=== PATIENT | female | born 1955 | race Caucasian/White ===

== ENCOUNTER 2018-06-24 08:02 | Inpatient (IN) ==
[2018-06-24] MEDS ORDERED: Sod Chloride 0.9% Inj 1,000 ML IV.SIG ONE (08:55)
[2018-06-24] MEDS ORDERED: diazePAM 5 MG Tablet PO ONE (08:55)
[2018-06-24 09:04] LABS: Baso % (Auto) 0.1 % (0.0-2.0); Eos % (Auto) 0.4 % (0.0-4.0); Hematocrit 40.3 % (35.0-46.0); Hemoglobin 13.4 gm/dL (11.6-15.3); Lymph # (Auto) 1.1 th/mm3 (1.0-4.8); Lymph % (Auto) 14.7 % (9.0-44.0); Mean Corpuscular HGB Conc 33.2 % (32.0-36.0); Mean Corpuscular Hemoglobin 27.2 pg (27.0-34.0); Mean Corpuscular Volume 82.1 fL (80.0-100.0); Mean Platelet Volume 8.1 fL (7.0-11.0); Mono # (Auto) 0.6 th/mm3 (0.0-0.9); Mono % (Auto) 8.2 % (0.0-8.0); Neut # (Auto) 5.6 th/mm3 (1.8-7.7); Neut % (Auto) 76.6 % (16.0-70.0); Platelet Count 244 th/mm3 (150-450); Red Blood Count 4.91 mil/mm3 (4.00-5.30); Red Cell Distribution Width 14.5 % (11.6-17.2); White Blood Count 7.3 th/mm3 (4.0-11.0)
--- NOTE | 2018-06-24 09:04 | ED ---
HPI General Chief Complaint: Dizziness Stated Complaint: Dizzy/nausea this am Time Seen by Provider: 06/24/18 08:15 Source: patient Mode of arrival: ambulatory Limitations: no limitations History of Present Illness HPI Narrative: The patient is a 63-year-old female who presents to emergency department for vertigo. The patient has a history of vertigo, awakened this morning with symptoms. The patient's symptoms are worse with positional changes, head movement, and are associated with nausea and vomiting. The patient took a meclizine this morning and then went to work. However, the patient had an episode of vomiting and thinks she may have vomited the meclizine. The patient then had an overwhelming sense of generalized weakness that was associated with a pronounced beating of the heart. The patient states she felt like her heart was beating at a regular rate, however, was beating loudly and slightly irregular. Therefore, the patient presents emergency department. The patient states that the atypical her sensation has resolved, however, she continues to have generalized weakness associated with nausea. The patient's symptoms are moderate. There are no current alleviating factors. The patient denies any headache or focal deficits. MD complaint: dizziness Onset (ago): hour(s) Timing: awoke with symptoms Description: "room spinning" History of similar episodes: Yes History of trauma: No Severity: moderate Exacerbating factors: movement and position Associated symptoms: weakness, nausea and vomiting Related Data Home Medications Medication Instructions Recorded Confirmed multivitamin 1 tab PO DAILY 06/24/18 06/24/18 Allergies Allergy/AdvReac Type Severity Reaction Status Date / Time No Known Allergies Allergy none Uncoded 06/24/18 08:40 Review of Systems ROS: all other systems reviewed are negative [facility] Medical History Medical History Glaucoma (Acute) Mitral valve prolapse (Acute) Skin cancer (Acute) Vertigo (Acute) Surgical History Surgical History History of breast implant (Acute) Social History Social History Substance History: No History of Abuse Smoking Status: Never smoker How Often Do You Have a Drink Containing Alcohol: Never Recent Travel in [facility] within the Last 8 Weeks: No Recent Out of Country Travel within the Last 8 Weeks: No Immunization History Tetanus Immunization: >5 Years Hx Influenza Vaccine This Season: No Exam Narrative Exam Narrative: GENERAL: Awake, alert, pleasant 63-year-old female who appears her stated age and is in no acute respiratory distress. SKIN: Focused skin assessment warm/dry. HEAD: Atraumatic. Normocephalic. EYES: Pupils equal and round. 3 mm bilateral and reactive. EOMs are intact. No obvious nystagmus. The patient is wearing glasses. ENT: No nasal bleeding or discharge. Mucous membranes pink and moist. NECK: Trachea midline. No JVD. CARDIOVASCULAR: Regular rate and rhythm. No murmur appreciated. RESPIRATORY: No accessory muscle use. Clear to auscultation. Breath sounds equal bilaterally. GASTROINTESTINAL: Abdomen soft, non-tender, nondistended. MUSCULOSKELETAL: No obvious deformities. No clubbing. No cyanosis. No edema. NEUROLOGICAL: Awake and alert. No obvious cranial nerve deficits. Motor grossly within normal limits. Normal speech. Nonfocal. Oriented 4. Follows commands without difficulty. PSYCHIATRIC: Appropriate mood and affect; insight and judgment normal. Course Initial Documented Vital Signs Temperature 97.8 F 06/24/18 08:27 Pulse Rate 66 06/24/18 08:27 Respiratory Rate 20 06/24/18 08:27 Blood Pressure 179/81 H 06/24/18 08:27 Pulse Oximetry 98 06/24/18 08:27 Last Documented Vital Signs Temperature 97.8 F 06/24/18 08:27 Pulse Rate 58 L 06/24/18 10:04 Respiratory Rate 16 06/24/18 10:04 Blood Pressure 153/70 H 06/24/18 10:04 Pulse Oximetry 97 06/24/18 10:04 Medical Decision Making [facility] Narrative Medical decision making narrative: IV was established, labs are drawn and sent, and the patient was placed on cardiac telemetry monitoring and continuous pulse oximetry monitoring. EKG was ordered and interpreted. The patient was administered Valium and IV fluids. Electrolytes were sent to lab. The patient appear to be in a normal sinus rhythm when I was examining the patient, therefore, repeat EKG was performed. Repeat EKG does reveal P waves with a sinus rhythm, however, there are several atrial beats that appear to have no P- wave or an inverted P-wave, most likely some type of atrial arrhythmia. The patient's troponin was positive at 0.10. CT the brain is negative for intracranial hemorrhage. Therefore, the patient was administered aspirin 162 mg orally. The patient does have a dysrhythmia with elevated troponin, may benefit from telemetry monitoring, echocardiogram, and serial troponins. I discussed the palliation with Dr. Canales who agrees with 23 hour observation. Medical Screen Exam Complete: Yes Emergency Medical Condition: Yes Differential Diagnosis Differential Diagnosis: Differential diagnosis includes vertigo, dizziness, arrhythmia, hyponatremia, hypokalemia, intracranial hemorrhage, labyrinthitis, Mnire's disease. Lab Data Result diagrams: 06/24/18 08:40 06/24/18 08:40 Lab Results 06/24/18 06/24/18 06/24/18 Range/Units 08:40 08:40 09:50 CBC w Diff Auto diff final WBC 7.3 (4.0-11.0) th/mm3 RBC 4.91 (4.00-5.30) mil/mm3 Hgb 13.4 (11.6-15.3) gm/dL Hct 40.3 (35.0-46.0) % MCV 82.1 (80.0-100.0) fL MCH 27.2 (27.0-34.0) pg MCHC 33.2 (32.0-36.0) % RDW 14.5 (11.6-17.2) % Plt Count 244 (150-450) th/mm3 MPV 8.1 (7.0-11.0) fL Neut % (Auto) 76.6 H (16.0-70.0) % Lymph % (Auto) 14.7 (9.0-44.0) % [place] % (Auto) 8.2 H (0.0-8.0) % Eos % (Auto) 0.4 (0.0-4.0) % Baso % (Auto) 0.1 (0.0-2.0) % Neut # (Auto) 5.6 (1.8-7.7) th/mm3 Lymph # (Auto) 1.1 (1.0-4.8) th/mm3 [place] # (Auto) 0.6 (0.0-0.9) th/mm3 Eos # (Auto) 0.0 (0.0-0.4) th/mm3 Baso # (Auto) 0.0 (0.0-0.2) th/mm3 WBC Differential . Differential Comment . Sodium 140 (136-145) meq/L Potassium 3.8 (3.5-5.1) meq/L Chloride 107 (98-107) meq/L Carbon Dioxide 25.9 (21.0-32.0) meq/L Anion Gap 7 (5-15) meq/L BUN 17 (7-18) mg/dL Creatinine 0.63 (0.50-1.00) mg/dL Estimated GFR Greater than 89 (>89) mL/min Random Glucose 107 H (74-106) mg/dL Calcium 8.7 (8.5-10.1) mg/dL Total Bilirubin 0.1 L (0.2-1.0) mg/dL AST 23 (15-37) U/L ALT 27 (10-53) U/L Alkaline Phosphatase 60 (45-117) U/L Troponin I 0.10 H (0.02-0.05) ng/mL Total Protein 6.7 (6.4-8.2) g/dL Albumin 3.6 (3.4-5.0) g/dL Ur Collection Type Clean catch Urine Color Yellow (Yellw/Straw) Urine Clarity Cloudy H (Clear) Urine pH 8.5 (5.0-8.5) Ur Specific [place] 1.015 (1.002-1.035) Urine Protein Negative (Neg-Trace) mg/dL Urine Glucose (UA) Negative (Negative) mg/dL Urine Ketones Negative (Negative) mg/dL Urine Occult Blood Negative (Negative) Urine Nitrate Negative (Negative) Urine Bilirubin Negative (Negative) Urine Urobilinogen 0.2 (Less than 2) mg/dL Ur Leukocyte Esterase Negative (Negative) Ur Squamous Epith Cells 0-5 (0-5) /hpf Amorphous Sediment Many H (None) /hpf Micro UA Comment Culture not ind Ur Microscopic Review Microscopic reviewed Urine Culture Comments Culture not ind Urine Collection Time 950 hours Imaging Data Radiologist's impression: Head CT 06/24/18 09:39 CONCLUSION: 1. Negative for acute process . ECG Data EKG Prior to Arrival: No Attestation: I personally reviewed and interpreted this ECG as follows: Interpretation: EKG reveals supraventricular rhythm with inverted P waves noted in lead II and III, supraventricular premature complexes in a bigeminal pattern. Q-wave noted in lead V1 and V2. Discharge Plan Discharge Disposition Patient Disposition: 30 Still Patient Discharge Condition Condition: Stable Discharge Details Diagnosis: Dysrhythmia, Elevated troponin, Vertigo, Nausea Physicians Team ED Provider: Chaitanya Loving Primary Care Provider: Yosi Dobson Rxs /Orders / Referrals /Forms Prescriptions: No Action multivitamin Tablet 1 tab PO DAILY RF: 0 Discharge Interventions Interventions: Vital Signs Last Done: 06/24/18 10:04 Status ED Status: Pending Admission
[2018-06-24 09:12] LABS: Chloride 107 meq/L (98-107); Potassium 3.8 meq/L (3.5-5.1); Sodium 140 meq/L (136-145)
[2018-06-24 09:15] LABS: Albumin 3.6 g/dL (3.4-5.0); Anion Gap 7 meq/L (5-15); Blood Urea Nitrogen 17 mg/dL (7-18); Calcium 8.7 mg/dL (8.5-10.1); Carbon Dioxide 25.9 meq/L (21.0-32.0); Glucose,Random 107 mg/dL (74-106)
[2018-06-24 09:18] LABS: Alanine Aminotransferase 27 U/L (10-53); Aspartate Aminotransferase 23 U/L (15-37); Glomerular Filtration Rate Greater Than 89 mL/min (>89)
[2018-06-24 09:20] LABS: Total Protein 6.7 g/dL (6.4-8.2)
[2018-06-24 09:21] LABS: Alkaline Phosphatase 60 U/L (45-117)
[2018-06-24 10:01] LABS: Bilirubin,Urine Negative (Negative); Clarity,Urine Cloudy (Clear); Color,Urine Yellow (Yellw/Straw); Glucose,Urine (UA) Negative (Negative); Leukocyte Esterase,Urine Negative (Negative); Nitrite,Urine Negative (Negative); PH,Urine 8.5 (5.0-8.5); Specific Gravity,Urine 1.015 (1.002-1.035); Urobilinogen,Urine 0.2 mg/dL (Less than 2)
[2018-06-24 10:14] LABS: Collection Time,Urine 950 hours
[2018-06-24 10:15] LABS: Amorphous Sediment,Urine Many /hpf; Squamous Epithelial Cell,Urine 0-5 /hpf (0-5)
--- NOTE | 2018-06-24 10:18 | CT ---
EXAM DATE: 06/24/2018 10:05 AM EDT AGE/SEX: 63 years / Female INDICATIONS: Dizziness. CLINICAL DATA: This is the patient's initial encounter. Patient reports that signs and symptoms have been present for 1 day and indicates a pain score of 0/10. MEDICAL/SURGICAL HISTORY: . Mitral valve prolapse. Skin cancer. None. RADIATION DOSE: 48.50 CTDI (mGy) COMPARISON: No prior exams available for comparison. TECHNIQUE: CT of the head without contrast. Using automated exposure control and adjustment of the mA and/or kV according to patient size, radiation dose was kept as low as reasonably achievable to ob tain optimal diagnostic quality images. DICOM format image data is available electronically for revi ew and comparison. FINDINGS: Cerebrum: The ventricles are normal for age. No evidence of midline shift, mass lesion, hemorrhage or acute infarction. No extraaxial fluid collections are seen. Posterior Fossa: The cerebellum and brainstem are intact. The 4th ventricle is midline. The cerebe llopontine angle is unremarkable. Extracranial: The visualized portion of the orbits is intact. Skull: The calvaria is intact. No evidence of skull fracture. CONCLUSION: 1. Negative for acute process . Electronically signed by: Ford Grewal MD 06/24/2018 10:16 AM EDT
[2018-06-24] MEDS: Sod Chloride 0.9% Inj 1,000 ML IV.CONT SCH ×2 (10:55→21:08)
[2018-06-24] MEDS ORDERED: Enoxaparin Inj 30 MG/0.3 ML Syringe SQ SCH (11:00)
--- NOTE | 2018-06-24 12:14 | P.HPIM ---
History of Present Illness Primary Care Physician: Yosi Dobson MD Chief Complaint: Dizziness, palpitations History of Present Illness: The patient is a 63-year-old female with a past medical history of vertigo and mitral valve prolapse who is presenting to the hospital with palpitations and dizziness. The patient states that she has had vertigo for the past 10 years. She falls down a lot. She did go to vestibular rehab in the past and improved. She states over the past 6 months her vertigo has changed. She says it is more in her head than it used to be. She still struggles with dizziness. She says in the past she had an MRI which showed a brain lesion which turned out to be benign. The patient states that today she was going to work when she felt palpitations. She felt like her heart was pounding out of her chest. She said that it was pounding very slowly. Her family checked her pulse and it was in the 30s on a couple of occasions. The patient also experienced nausea and vomiting as well as profound weakness in the upper extremities. She denied any shortness of breath or chest pain. She currently says the nausea is gone. She denies ever having palpitations before. 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 ear Mitral valve prolapse Skin cancer Vertigo - Surgical History Surgical History: Surgical History (Last Updated 06/24/18 @ 12:09 by Dario Canales DO) History of breast implant History of tonsillectomy - Family History Family History: Family History (Last Updated 06/24/18 @ 12:10 by Dario Canales DO) Other CVA (cerebral vascular accident) Glioblastoma multiforme of brain - Social History I have reviewed the patient's Social History: Yes - Tobacco History Tobacco Use In Past 30 Days: No Smoking Status: Never smoker - Alcohol History How Often Do You Have a Drink Containing Alcohol: Never - Substance Use History Substance History: No History of Abuse - Travel History Recent Travel in the [place] Within the Last 8 Weeks: No Recent Travel Out of the Country Within the Last 8 Weeks: No - Immunization History Tetanus Immunization: >5 Years Hx Influenza Vaccine This Season: No Medications and Allergies Active Medications: Active Medications Acetaminophen (Tylenol) 650 mg PO Q4H PRN PRN Reason: Temp > 100.4 Enoxaparin Sodium (Lovenox Inj) 30 mg SQ Q24H [facility] Last Admin: 06/24/18 10:55 Dose: 30 mg Sodium Chloride (Ns Inj) 1,000 mls @ 100 mls/hr IV.CONT .Q10H [facility] Last Admin: 06/24/18 10:55 Dose: 100 mls/hr Multivitamins (Theragran) 1 tab PO DAILY [facility] Non-Formulary Medication (Timolol [Timolol]) 1 drp EACH EYE BID [facility] Ondansetron HCl (Zofran Inj) 4 mg IV.PUSH Q6H PRN PRN Reason: NAUSEA OR VOMITING Sodium Chloride (Ns Flush) 2 ml IV.FLUSH PRN PRN PRN Reason: FLUSH AFTER USING IV ACCESS Allergies Allergy/AdvReac Type Severity Reaction Status Date / Time No Known Allergies Allergy none Uncoded 06/24/18 08:40 Home Medications Medication Instructions Recorded Confirmed Type multivitamin 1 tab PO DAILY 06/24/18 06/24/18 History timolol 0 drp OPHTHALMIC (EYE) BID 06/24/18 06/24/18 History Exam Vital signs: Vital Signs 06/24/18 08:27 06/24/18 08:30 06/24/18 09:02 Temperature 97.8 F Pulse Rate 66 57 L 61 Respiratory Rate 20 18 Blood Pressure 179/81 H 170/70 H Pulse Oximetry 98 97 06/24/18 09:04 06/24/18 10:04 06/24/18 11:55 Temperature Pulse Rate 62 58 L 67 Respiratory Rate 16 18 Blood Pressure 153/70 H 140/72 Pulse Oximetry 97 99 Intake & Output 06/23/18 06/24/18 06/24/18 18:59 06:59 18:59 Intake Total 1000 / 1000 Balance 1000 / 1000 Weight 56.5 kg Intake: IV 1000 / 1000 NS Inj 1,000 ML @ Wide Open IV. 1000 / 1000 SIG BOLUS ONE Rx#:[id number] Narrative: GENERAL: No distress. SKIN: Focused skin assessment warm/dry. HEAD: Atraumatic. Normocephalic. EYES: Pupils equal and round. 3 mm bilateral and reactive. EOMs are intact. No obvious nystagmus. ENT: No nasal bleeding or discharge. Mucous membranes pink and moist. NECK: Trachea midline. No JVD. CARDIOVASCULAR: Regular rate and rhythm. No murmur appreciated. RESPIRATORY: No accessory muscle use. Clear to auscultation. Breath sounds equal bilaterally. GASTROINTESTINAL: Abdomen soft, non-tender, nondistended. MUSCULOSKELETAL: No obvious deformities. No clubbing. No cyanosis. No edema. NEUROLOGICAL: Awake and alert. No obvious cranial nerve deficits. Motor grossly within normal limits. Normal speech. Nonfocal. Oriented 4. Follows commands without difficulty. PSYCHIATRIC: Appropriate mood and affect; insight and judgment normal. Results - Labs CBC & Chem 7: 06/24/18 08:40 06/24/18 08:40 Labs: Short CBC 06/24/18 Range/Units 08:40 WBC 7.3 (4.0-11.0) th/mm3 Hgb 13.4 (11.6-15.3) gm/dL Hct 40.3 (35.0-46.0) % Plt Count 244 (150-450) th/mm3 BMP 06/24/18 08:40 Sodium 140 Potassium 3.8 Chloride 107 Carbon Dioxide 25.9 BUN 17 Creatinine 0.63 Calcium 8.7 Cardiac Enzymes 06/24/18 Range/Units 08:40 Troponin I 0.10 H (0.02-0.05) ng/mL Liver Function 06/24/18 Range/Units 08:40 Total Bilirubin 0.1 L (0.2-1.0) mg/dL AST 23 (15-37) U/L ALT 27 (10-53) U/L Alkaline Phosphatase 60 (45-117) U/L Albumin 3.6 (3.4-5.0) g/dL Urine 06/24/18 Range/Units 09:50 Urine Color Yellow (Yellw/Straw) Urine Clarity Cloudy H (Clear) Urine pH 8.5 (5.0-8.5) Ur Specific [place] 1.015 (1.002-1.035) Urine Protein Negative (Neg-Trace) mg/dL Urine Glucose (UA) Negative (Negative) mg/dL - Imaging Impressions Head CT 06/24/18 09:39 CONCLUSION: 1. Negative for acute process . Caprini VTE Risk Assessment Caprini VTE Risk Assessment: Moderate/High Risk (score >= 2) Caprini Risk Assessment Model: Point Value = 1 Point Value = 2 Point Value = 3 Point Value = 5 Age 41-60 Minor surgery BMI > 25 kg/m2 Swollen legs Varicose veins or History of unexplained or recurrent spontaneous Oral contraceptives or hormone replacement Sepsis (< 1 month) Serious lung disease, including pneumonia (< 1 month) Abnormal pulmonary function Acute myocardial infarction Congestive heart failure (< 1 month) History of inflammatory bowel disease Medical patient at bed rest Age 61-74 Arthroscopic surgery Major open surgery (> 45 min) Laparoscopic surgery (> 45 min) Malignancy Confined to bed (> 72 hours) Immobilizing plaster cast Central venous access Age >= 75 History of VTE Family history of VTE Factor V Leiden Prothrombin [id number] Lupus anticoagulant Anticardiolipin antibodies Elevated serum homocysteine Heparin-induced thrombocytopenia Other congenital or acquired thrombophilia Stroke (< 1 month) Elective arthroplasty Hip, pelvis, or leg fracture Acute spinal cord injury (< 1 month) Prophylaxis Regimen: Total Risk Factor Score Risk Level Prophylaxis Regimen 0-1 Low Early ambulation 2 Moderate Order ONE of the following: *Sequential Compression Device (SCD) *Heparin 5000 units SQ BID 3-4 Higher Order ONE of the following medications: *Heparin 5000 units SQ TID *Enoxaparin/Lovenox 40 mg SQ daily (WT < 150 kg, CrCl > 30 mL/min) *Enoxaparin/Lovenox 30 mg SQ daily (WT < 150 kg, CrCl > 10-29 mL/min) *Enoxaparin/Lovenox 30 mg SQ BID (WT < 150 kg, CrCl > 30 mL/min) AND/OR *Sequential Compression Device (SCD) 5 or more Highest Order ONE of the following medications: *Heparin 5000 units SQ TID (Preferred with Epidurals) *Enoxaparin/Lovenox 40 mg SQ daily (WT < 150 kg, CrCl > 30 mL/min) *Enoxaparin/Lovenox 30 mg SQ daily (WT < 150 kg, CrCl > 10-29 mL/min) *Enoxaparin/Lovenox 30 mg SQ BID (WT < 150 kg, CrCl > 30 mL/min) AND *Sequential Compression Device (SCD) Assessment and Plan - Plan Palpitations/ Elevated troponin The pt experienced slow palpitations, troponin level noted to be 0.1. She denied chest pain or shortness of breath. She has a history of mitral valve prolapse. -trend trops. -check an echo. -monitor on telemetry. -check a TSH. -consult Dr. Hernandez as needed (her manufacture specialist). Vertigo Chronic. The pt says about six months ago her vertigo changed and she has a different sensation now. She says she has a history of a benign brain mass. CT head unremarkable. -MRI brain requested. -patient declined PT. -fall precautions. HTN No reported history. -Vasotec as needed. PPx: Lovenox
--- NOTE | 2018-06-24 14:10 | ECG ---
Date Performed: 06/24/2018 Time Performed: 08:26:57 PTAGE: 63 years EKG: JUNCTIONAL RHYTHM WITH FREQUENT SUPRAVENTRICULAR PREMATURE COMPLEXES IN A BIGEMINAL PATTERN POSSIBLE RIGHT VENTRICULAR CONDUCTION DELAY SEPTAL MYOCARDIAL INFARCTION ABNORMAL ECG Clinical corre lation is recommended NO PREVIOUS TRACING DOCTOR: Stefano Bullard Interpretating Date/Time 06/24/2018 14:08:22
--- NOTE | 2018-06-24 14:10 | ECG ---
Date Performed: 06/24/2018 Time Performed: 09:18:10 PTAGE: 63 years EKG: ATRIAL FIBRILLATION WITH SLOW VENTRICULAR RESPONSE INCOMPLETE RIGHT BUNDLE BRANCH BLOCK SEP ELY MYOCARDIAL INFARCTION ABNORMAL ECG Compared to PREVIOUS TRACING ventricular ectopy has diminished, otherwise largely unchanged PREVIOUS TRACIN06/24/2018 08.26 DOCTOR: Stefano Bullard Interpretating Date/Time 06/24/2018 14:08:49
[2018-06-24] MEDS: Lisinopril 10 MG Tablet PO SCH (14:51)
[2018-06-24] MEDS: Heparin Drip 25,000 UNIT/250 ML BAG IV.CONT PRN ×2 (14:52→16:01)
[2018-06-24 16:00] LABS: Activated Partial Thrombo Time 27.4 sec (24.3-30.1); Prothrombin Time 10.6 sec (9.8-11.6)
[2018-06-24] MEDS ORDERED: amLODIPine 5 MG Tablet PO SCH (17:00)
[2018-06-24 17:53] LABS: Chol/HDL Ratio 3.19 Ratio; HDL Cholesterol 56.9 mg/dL (40.0-60.0)
--- NOTE | 2018-06-24 18:17 | ECHRPT ---
Indication: CARDIOMYOPATHY CONCLUSIONS The left ventricular systolic function is normal with an estimated ejection fraction in the range of 60-65%. There is mid to apical septal akinesis. There is trace-mild tricuspid valve regurgitation. The estimated pulmonary arterial pressure is 44.1 mmHg. Estimated RAP 8mmHg. BP: / HR: Rhythm: MEASUREMENTS (Male / Female) Normal Values Technical Quality: 2D ECHO LV Diastolic Diameter PLAX 4.1 cm 4.2 - 5.9 / 3.9 - 5.3 cm LV Systolic Diameter PLAX 2.9 cm IVS Diastolic Thickness 0.9 cm 0.6 - 1.0 / 0.6 - 0.9 cm LVPW Diastolic Thickness 0.9 cm 0.6 - 1.0 / 0.6 - 0.9 cm LV Relative Wall Thickness 0.4 RV Internal Dim ED PLAX 2.5 cm LVOT Diameter 1.7 cm LA Systolic Diameter LX 3.0 cm 3.0 - 4.0 / 2.7 - 3.8 cm LV Ejection Fraction MOD 4C 64.8 % LV Ejection Fraction 4C AL 65.4 % M-MODE Aortic Root Diameter MM 2.0 cm LA Systolic Diameter MM 2.8 cm LA Ao Ratio MM 1.4 AV Cusp Separation MM 1.6 cm DOPPLER AV Peak Velocity 126.0 cm/s AV Peak Gradient 6.4 mmHg LVOT Peak Velocity 129.0 cm/s LVOT Peak Gradient 6.7 mmHg AV Area Cont Eq pk 2.3 cm MV Area PHT 3.1 cm Mitral E Point Velocity 69.6 cm/s Mitral A Point Velocity 64.7 cm/s Mitral E to A Ratio 1.1 LV E' Lateral Velocity 9.1 cm/s Mitral E to LV E' Lateral Ratio 7.7 LV E' Septal Velocity 7.2 cm/s Mitral E to LV E' Septal Ratio 9.7 TR Peak Velocity 292.0 cm/s TR Peak Gradient 34.1 mmHg Right Atrial Pressure 10.0 mmHg Pulmonary Artery Systolic Pressu 44.1 mmHg Right Ventricular Systolic Press 44.1 mmHg PV Peak Velocity 86.9 cm/s PV Peak Gradient 3.0 mmHg FINDINGS LEFT VENTRICLE The left ventricular systolic function is normal with an estimated ejection fraction in the range of 60-65%. Normal left ventricular size. Wall thickness is normal. There is mid to apical septal akinesis. RIGHT VENTRICLE Normal right ventricular size and systolic function. LEFT ATRIUM The left atrial size is normal. RIGHT ATRIUM The right atrial size is normal. ATRIAL SEPTUM Normal atrial septal thickness without atrial level shunting by limited color doppler interrogation. AORTA The aortic root and proximal ascending aorta are normal in size on limited imaging. MITRAL VALVE Structurally normal mitral valve. No mitral valve stenosis or regurgitation. AORTIC VALVE Trileaflet aortic valve. No aortic valve stenosis or regurgitation. TRICUSPID VALVE Structurally normal tricuspid valve. There is trace-mild tricuspid valve regurgitation. The estimated pulmonary arterial pressure is 44.1 mmHg. PULMONARY VALVE No pulmonary valve regurgitation or stenosis. VESSELS The inferior vena cava is dilated. There is less than 50% respiratory change in dimension of the inferior vena cava (abnormal). PERICARDIUM No pericardial effusion. Roman Workman (Electronically Signed) Final Date:24 June 2018 18:15
[2018-06-24] MEDS: Timolol 0.25% Drops 5 ML Bottle EACH EYE SCH (21:07)
[2018-06-25 05:05] LABS: Baso % (Auto) 0.4 % (0.0-2.0); Eos % (Auto) 0.8 % (0.0-4.0); Hematocrit 36.9 % (35.0-46.0); Lymph # (Auto) 1.2 th/mm3 (1.0-4.8); Lymph % (Auto) 34.3 % (9.0-44.0); Mean Corpuscular HGB Conc 32.4 % (32.0-36.0); Mean Corpuscular Hemoglobin 27.2 pg (27.0-34.0); Mean Platelet Volume 7.7 fL (7.0-11.0); Mono # (Auto) 0.4 th/mm3 (0.0-0.9); Mono % (Auto) 10.5 % (0.0-8.0); Neut # (Auto) 1.9 th/mm3 (1.8-7.7); Platelet Count 175 th/mm3 (150-450); Red Cell Distribution Width 14.8 % (11.6-17.2); White Blood Count 3.6 th/mm3 (4.0-11.0)
[2018-06-25] MEDS: Acetaminophen 325 MG Tablet PO PRN ×2 (05:19→09:55)
[2018-06-25 05:41] LABS: Alanine Aminotransferase 27 U/L (10-53); Albumin 3.2 g/dL (3.4-5.0); Anion Gap 8 meq/L (5-15); Aspartate Aminotransferase 26 U/L (15-37); Blood Urea Nitrogen 16 mg/dL (7-18); Calcium 8.4 mg/dL (8.5-10.1); Chloride 111 meq/L (98-107); Glomerular Filtration Rate Greater Than 89 mL/min (>89); Glucose,Random 93 mg/dL (74-106); Potassium 3.7 meq/L (3.5-5.1); Sodium 147 meq/L (136-145)
[2018-06-25 05:43] LABS: Alkaline Phosphatase 55 U/L (45-117); Total Protein 5.9 g/dL (6.4-8.2)
[2018-06-25] MEDS: Sod Chloride 0.9% Inj 1,000 ML IV.CONT SCH ×2 (06:25→18:42)
[2018-06-25] MEDS ORDERED: Iohexol 350 MG/ML 50 ML Vial (for Cath Lab) IVCONTRAST ONE (07:20)
--- NOTE | 2018-06-25 08:10 | P.CONCA ---
History of Present Illness Primary Care Provider: Yosi Dobson MD Family Provider: Yosi Dobson MD Chief Complaint: Dizziness, palpitations History of Present Illness: 63-year-old female with past medical history of vertigo who presented for weakness, chest pounding, nausea. Patient states she was having dizziness and nausea like with her previous vertigo episodes when she went to work yesterday. She states while at work she felt weak and had her drive her home. On the way home she was having sensation of pounding heart. She checked her blood pressure when she went home and her home blood pressure machine read her pulse as 30 so she decided to go to the ED for evaluation. She states she was given Valium and Zofran in the ED which resolved her nausea and dizziness. Her initial EKG shows septal Q waves which have persisted and bigeminal premature junctional contractions which have resolved. Initial troponin of 0.10 trended up to 3.00. She is currently on Nitropaste and heparin drip. She complains of headache today, no chest pain. No family history of CT or tobacco use history. She denies any prior history of HTN, HLD, DM. 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 ear Mitral valve prolapse Skin cancer Vertigo - Surgical History Surgical History: Surgical History (Last Updated 06/24/18 @ 12:09 by Dario Canales DO) History of breast implant History of tonsillectomy - Family History Family History: Family History (Last Updated 06/24/18 @ 12:10 by Dario Canales DO) Other CVA (cerebral vascular accident) Glioblastoma multiforme of brain - Tobacco History Tobacco Use In Past 30 Days: No Smoking Status: Never smoker - Alcohol History How Often Do You Have a Drink Containing Alcohol: Never - Substance Use History Substance History: No History of Abuse - Travel History Recent Travel in the [place] Within the Last 8 Weeks: No Recent Travel Out of the Country Within the Last 8 Weeks: No - Immunization History Tetanus Immunization: >5 Years Hx Influenza Vaccine This Season: No Medications and Allergies Allergies Allergy/AdvReac Type Severity Reaction Status Date / Time No Known Allergies Allergy none Uncoded 06/24/18 08:40 Home Medications Medication Instructions Recorded Confirmed Type multivitamin 1 tab PO DAILY 06/24/18 06/24/18 History timolol 0 drp OPHTHALMIC (EYE) BID 06/24/18 06/24/18 History Active Medications: Active Medications Acetaminophen (Tylenol) 650 mg PO Q4H PRN PRN Reason: Temp > 100.4 Last Admin: 06/25/18 05:19 Dose: 650 mg Amlodipine Besylate (Norvasc) 5 mg PO DAILY [facility] Last Admin: 06/24/18 16:36 Dose: 5 mg Aspirin (Ecotrin) 81 mg PO DAILY [facility] Atorvastatin Calcium (Lipitor) 40 mg PO HS [facility] Last Admin: 06/24/18 20:31 Dose: 40 mg Sodium Chloride (Ns Inj) 1,000 mls @ 100 mls/hr IV.CONT .Q10H [facility] Last Admin: 06/25/18 06:25 Dose: 100 mls/hr Heparin Sodium/Dextrose (Heparin/D5w 25,000 U/250 Ml) 25,000 unit in 250 mls @ 0 mls/hr IV.CONT TITRATE PRN; Protocol PRN Reason: Per Protocol Last Admin: 06/24/18 16:01 Dose: 700 units/hr, 7 mls/hr Lisinopril (Prinivil) 10 mg PO DAILY [facility] Last Admin: 06/24/18 14:51 Dose: 10 mg Multivitamins (Theragran) 1 tab PO DAILY [facility] Nitroglycerin (Nitro-Bid 2% Oint) 1 inch TOPICAL Q6HR [facility] Last Admin: 06/25/18 05:13 Dose: 1 inch Ondansetron HCl (Zofran Inj) 4 mg IV.PUSH Q6H PRN PRN Reason: NAUSEA OR VOMITING Sodium Chloride (Ns Flush) 2 ml IV.FLUSH PRN PRN PRN Reason: FLUSH AFTER USING IV ACCESS Timolol Maleate (Timolol 0.25% Drops) 1 drops EACH EYE BID [facility] Last Admin: 06/24/18 21:07 Dose: 1 drops Exam Vital signs: Vital Signs 06/24/18 08:27 06/24/18 08:30 06/24/18 09:02 Temperature 97.8 F Pulse Rate 66 57 L 61 Respiratory Rate 20 18 Blood Pressure 179/81 H 170/70 H Pulse Oximetry 98 97 06/24/18 09:04 06/24/18 10:04 06/24/18 11:55 Temperature Pulse Rate 62 58 L 67 Respiratory Rate 16 18 Blood Pressure 153/70 H 140/72 Pulse Oximetry 97 99 06/24/18 13:55 06/24/18 17:30 06/24/18 17:42 Temperature 97.3 F L 98.3 F 98.3 F Pulse Rate 59 L 67 67 Respiratory Rate 21 16 16 Blood Pressure 193/88 H 127/72 127/72 Pulse Oximetry 100 99 99 06/24/18 19:00 06/24/18 20:00 06/24/18 20:27 Temperature 97.7 F Pulse Rate 59 L 58 L 66 Respiratory Rate 16 Blood Pressure 112/63 Pulse Oximetry 100 06/24/18 21:00 06/24/18 22:00 06/24/18 23:00 Temperature 98.2 F Pulse Rate 64 56 L 60 Respiratory Rate 16 Blood Pressure 107/54 L Pulse Oximetry 100 06/25/18 00:00 06/25/18 01:00 06/25/18 02:00 Temperature Pulse Rate 54 L 59 L 58 L Respiratory Rate Blood Pressure Pulse Oximetry 06/25/18 03:00 06/25/18 04:00 06/25/18 05:00 Temperature 97.0 F L Pulse Rate 54 L 61 59 L Respiratory Rate 16 Blood Pressure 107/58 L Pulse Oximetry 99 06/25/18 06:00 Temperature Pulse Rate 71 Respiratory Rate Blood Pressure Pulse Oximetry Intake & Output 06/24/18 06/25/18 06/25/18 18:59 06:59 18:59 Intake Total 1730 / 1730 2480 / 2480 Output Total 1150 / 1150 Balance 1730 / 1730 1330 / 1330 Weight 124 lb 8.979 oz 128 lb 1.417 oz Intake: IV 1000 / 1000 1999 / 1999 NS Inj 1,000 ML @ 100 mls/hr IV 1999 .CONT .Q10H [facility] Rx#:[id number] NS Inj 1,000 ML @ Wide Open IV. 1000 / 1000 SIG BOLUS ONE Rx#:[id number] Oral 480 / 480 480 / 480 Oral Supplement 250 / 250 Output: Urine 1150 / 1150 Other: Date of Last Bowel Movement 06/24/18 06/24/18 Narrative: GENERAL: Well-developed well-nourished. In no acute distress. NECK: No carotid bruits. No JVD. CARDIOVASCULAR: Regular rate and rhythm. No murmur appreciated. RESPIRATORY: No accessory muscle use. Clear to auscultation. Breath sounds equal bilaterally. MUSCULOSKELETAL: No clubbing or cyanosis. No edema. NEUROLOGICAL: Awake and alert. Normal speech. Results 06/25/18 04:30 06/25/18 04:30 Cardiac Enzymes 06/24/18 06/24/18 06/24/18 Range/Units 08:40 13:39 18:42 AST 23 (15-37) U/L Troponin I 0.10 H 2.64 H* D 3.00 H* D (0.02-0.05) ng/mL 06/25/18 Range/Units 04:30 AST 26 (15-37) U/L Troponin I (0.02-0.05) ng/mL Coagulation 06/24/18 06/24/18 06/25/18 Range/Units 15:16 23:09 04:30 PT 10.6 (9.8-11.6) sec APTT 27.4 42.5 H D 48.4 H (24.3-30.1) sec Lipids 06/24/18 Range/Units 08:40 Triglycerides 60 (42-150) mg/dL Cholesterol 182 (120-200) mg/dL HDL Cholesterol 56.9 (40.0-60.0) mg/dL Cholesterol/HDL Ratio 3.19 Ratio CBC 06/24/18 06/25/18 Range/Units 08:40 04:30 WBC 7.3 3.6 L D (4.0-11.0) th/mm3 RBC 4.91 4.40 (4.00-5.30) mil/mm3 Hgb 13.4 12.0 (11.6-15.3) gm/dL Hct 40.3 36.9 (35.0-46.0) % Plt Count 244 175 (150-450) th/mm3 Neut # (Auto) 5.6 1.9 (1.8-7.7) th/mm3 Lymph # (Auto) 1.1 1.2 (1.0-4.8) th/mm3 [place] # (Auto) 0.6 0.4 (0.0-0.9) th/mm3 Eos # (Auto) 0.0 0.0 (0.0-0.4) th/mm3 Baso # (Auto) 0.0 0.0 (0.0-0.2) th/mm3 Comprehensive Metabolic Panel 06/24/18 06/25/18 Range/Units 08:40 04:30 Sodium 140 147 H (136-145) meq/L Potassium 3.8 3.7 (3.5-5.1) meq/L Chloride 107 111 H (98-107) meq/L Carbon Dioxide 25.9 28.0 (21.0-32.0) meq/L BUN 17 16 (7-18) mg/dL Creatinine 0.63 0.60 (0.50-1.00) mg/dL Calcium 8.7 8.4 L (8.5-10.1) mg/dL AST 23 26 (15-37) U/L ALT 27 27 (10-53) U/L Alkaline Phosphatase 60 55 (45-117) U/L Total Protein 6.7 5.9 L D (6.4-8.2) g/dL Albumin 3.6 3.2 L (3.4-5.0) g/dL Intake and Output 06/24/18 06/25/18 06/25/18 22:59 06:59 14:59 Intake Total 1730 / 1730 1480 / 1480 Output Total 1150 / 1150 Balance 1730 / 1730 330 / 330 Intake: IV 1000 / 1000 1000 / 1000 NS Inj 1,000 ML @ 100 mls/hr IV 1000 / 1000 1000 / 1000 .CONT .Q10H [facility] Rx#:[id number] Oral 480 / 480 480 / 480 Oral Supplement 250 / 250 Output: Urine 1150 / 1150 Other: Date of Last Bowel Movement 06/24/18 06/24/18 Weight 128 lb 1.417 oz Assessment and Plan - Plan 63-year-old female with past medical history of vertigo who presented for weakness, chest pounding, nausea NSTEMI: Echo with normal EF. N.p.o. after light breakfast today for LHC this afternoon. Continue aspirin, statin, Nitropaste, heparin GTT, ELISHA inhibitor for now. Patient seen and examined. Agree with above. NSTEMI with no prior cardiac hx. Palpitations hx of vertigo tele reviewed with SB, no events Plan for LHC later today. Discussed Condition With: Patient seen and examined with Dr. Workman, RN
[2018-06-25] MEDS: Lisinopril 10 MG Tablet PO SCH (09:51)
[2018-06-25] MEDS: Timolol 0.25% Drops 5 ML Bottle EACH EYE SCH ×2 (09:53→20:35)
--- NOTE | 2018-06-25 11:36 | ECG ---
Date Performed: 06/25/2018 Time Performed: 05:14:36 PTAGE: 63 years EKG: Possible ectopic atrial rhythm Possible anteroseptal infarct - age undetermined Abnormal EC G PREVIOUS TRACING : 06/24/2018 15.11 DOCTOR: Akil Zarate Interpretating Date/Time 06/25/2018 11:33:38
--- NOTE | 2018-06-25 11:54 | ECG ---
Date Performed: 06/24/2018 Time Performed: 15:11:41 PTAGE: 63 years EKG: Sinus rhythm POSSIBLE RIGHT VENTRICULAR CONDUCTION DELAY PREVIOUS TRACING : 06/24/2018 09.18 DOCTOR: Akil Zarate Interpretating Date/Time 06/25/2018 11:50:38
[2018-06-25] MEDS ORDERED: Heparin/NS PF Inj 1,500 ML ONE (14:49)
[2018-06-25] MEDS ORDERED: fentaNYL Citrate Inj 100 MCG/2 ML Ampul ONE (15:11)
[2018-06-25] MEDS ORDERED: Heparin 10,000 UNITS/10 ML Vial (for IV use) ONE (15:15)
--- NOTE | 2018-06-25 15:56 | CATHPROC ---
[facility] HIS Report Study Information Study Number Admission Scheduled Start Study Start [id number] Jun 24 2018 2:15PM 06/25/2018 Jun 25 2018 3:18PM [place] [facility] Cardiac Catheterization Admit Source Facility Department Other [facility] - What Job Titles Mean Physician and Clinical Staff Initial [facility] Machine Operator Tom Victoria,RN Recorder Dustin Mir,BILLIE Recorder Deborah Britton,BILLIE Scrub Gabriela Maldonado ,RT(R) Procedures Performed Procedure Location (Site) Vessel Name Coronary Angiograms LCA Left Coronary Coronary Angiograms RCA Right Coronary Equipment Time Meterman Description Size Mfg Part Number Used/Scraped TRANSDUCER, TRUWAVE [id number] 15:21 LINDSAY RODRIGUEZ * Used W/STOCKCOCK *[id number] [id number] *[id number] [id number] *[id number] 15:21 [employer] BLANKET,WARM AIR CCL * Used *[id number] 15:21 [employer] PACK, CCL CUSTOM * Used *[id number] 15:21 [employer] SUPPORT, ARTERIAL ADULT [id number] *[id number] Used BAND, RADIAL COMPRESSION TR [id number] 15:44 PCA Audit 24CM Used SHORT 24 *[id number] SHEATH, FR6 RADIAL PRELUDE 15:21 PCA Audit FR 6 [id number] Used EASE 11CM [id number] 15:21 PCA Audit WIRE, EXCHANGE 260CM 3MMJ 260CM Used *[id number] 15:21 NAMIC MANIFOLD, 4 PORT * Used *[id number] 15:21 NYCOMED OMNIPAQUE, 350 MG, 150ML 150ML [id number] Used History: Allergies Allergy Reaction No Known Allergies none History: Risk Factors Family History of Hypertension Dyslipidemia Previous OR Previous Heart Failure Premature CAD No No No No No Prior Valve Prior PCI Prior CABG Surgery No No No Cerebrovascular Peripheral Artery Chronic Lung On Dialysis Diabetes Disease Disease Disease No No No No No History: Stress Tests Stress or Imaging Studies Performed No History: Other Current Smoker No Labs Hgb (g/dl) Hct (%) WBC (l/cumm) Platelets (thousands) 11.60-17.00 35.00-51.00 4.00-11.00 150.00-450.00 12.0 36.9 3.6 175 Glucose (mg/dl) BUN (mg/dl) Creatinine (mg/dl) BUN:Creatinine (1:x) 74.00-106.00 7.00-18.00 0.50-1.30 10.00-20.00 93 16 0.6 26.7 Na (meq/l) K (meq/l) 136.00-145.00 3.50-5.10 147 3.7 INR (PTT:PT) 0.90-1.10 1 Troponin I (ng/ml) CPK-MB (ng/ML) 0.02-0.05 0.50-3.60 3 Not Drawn Medication Medication Total Dose (Bolus/Oral) Medication Total Dosage/Unit 1% XYLOCAINE 10 mL FENTANYL 100 mcg HEPARIN 3000 units VERSED 2 mg Medications (Bolus/Oral) Medication Time Given Dosage/Unit Administered By Reason VERSED 06/25/2018 3:32:00 PM 1 mg Julien, Tom 1 mg VERSED given by Tom Victoria RN via Peripheral IV. VERSED 06/25/2018 3:32:02 PM 1 mg Julien, Tom 1 mg VERSED given by Tom Victoria RN via Peripheral IV. FENTANYL 06/25/2018 3:32:07 PM 50 mcg Julien, Tom 50 mcg FENTANYL given by Tom Victoria RN via Peripheral IV. FENTANYL 06/25/2018 3:33:00 PM 50 mcg Julien, Tom 50 mcg FENTANYL given by Tom Victoria RN via Peripheral IV. 1% XYLOCAINE 06/25/2018 3:34:12 PM 10 mL Akil Zarate 10 mL 1% XYLOCAINE given by Akil Zarate via Subcutaneous. HEPARIN 06/25/2018 3:38:55 PM 3000 units Julien, Tom 3000 units HEPARIN given by Tom Victoria RN via Peripheral IV. Initial Case Assessment Cardiovascular Edema Present Skin color Skin None Normal Warm Dry Circulatory - Right Pulses Dorsalis Pedis Femoral Radial 2 2 2 Scale (0,1,2,3,4,d) Circulatory - Left Pulses Dorsalis Pedis Femoral Radial 2 2 Scale (0,1,2,3,4,d) Neurological State Oriented to time-place- Alert Moves all extremities person Final Case Assessment Cardiovascular HR Rhythm NIBP Chest Pain 75 NSR 122/63 0 Edema Present Skin color Skin None Normal Warm Dry Circulatory - Right Pulses Dorsalis Pedis Posterior Tibial Femoral 1 1 2 Scale (0,1,2,3,4,d) Circulatory - Left Pulses Dorsalis Pedis Posterior Tibial Femoral 1 1 2 Scale (0,1,2,3,4,d) Circulatory - Lower Extremities Color Lower Right Color Lower Left Normal Normal Neurological State Oriented to time-place- Alert Moves all extremities person Respiration - General Respiration Rate SpO2 (%) (B/min) 14 97 Chronological Log Time Study Chronological Log 15:04:00 Patient Name, D.O.B, / Armband Verified By R.N. 15:05:00 Patient arrived via Bed. Vitals capture started with the following parameters, Patient=Adult, Interval=3 min, Initial Pr xlrlox=786 mmHg, 15:17:32 Deflation Rate=5 mmHg, Cuff placed on Left Arm 15:18:08 TWLA=837/76 mmhg, SpO2=99.0 %, Resp=14 B/min, Pain=0, Ralph=10, Stevens=2 15:21:08 HR=64 bpm, CKDT=149/80 mmhg, SpO2=99.0 %, Resp=3 B/min, Pain=0, Ralph=10, Stevens=2 15:21:51 Patient has been NPO for More than 6Hrs. 15:21:53 Skin Breakdown- none per pt 15:22:01 Patient Warmer Placed on the Table. 15:22:02 Josefina Prominences Protected Assessment: Initial Case, Edema=None, Color=Normal, Skin = Warm, Dry Right Pulses: Vaibhav Ped=2, Femoral=2, Radial=2 15:22:07 Left Pulses: Vaibhav Ped=2, Femoral=2 Neurological: State=Alert, Ox3, CARDOSO 15:22:24 Right Radial and groin(s) prepped with 2% chlorhexidine, and draped after a 3 min. waiting time. 15:22:37 Reference ECG taken 15:24:11 HR=66 bpm, IDNI=806/71 mmhg, SpO2=99.0 %, Resp=10 B/min, Pain=0, Ralph=10, Stevens=2 15:27:07 HR=66 bpm, OVOV=750/78 mmhg, SpO2=99.0 %, Resp=0 B/min, Pain=0, Ralph=10, Stevens=2 15:27:20 Pressure channel 1 zeroed. Time Out. Correct patient, correct procedure, correct physician, labs, allergies, and equipment verified with brine room laborer 15:29:47 team present. Fire risk assesment completed (see hard stop sheet for coding). Time Out Conc urred by MD and individual staff in procedure. 15:30:07 HR=73 bpm, FOVY=055/79 mmhg, SpO2=98.0 %, Resp=20 B/min, Pain=0, Ralph=10, Stevens=2 15:32:00 1 mg VERSED given by Tom Victoria RN via Peripheral IV. 15:32:02 1 mg VERSED given by Tom Victoria RN via Peripheral IV. 15:32:07 50 mcg FENTANYL given by Tom Victoria RN via Peripheral IV. 15:32:12 Case Start 15:33:00 50 mcg FENTANYL given by Tom Victoria RN via Peripheral IV. 15:33:09 HR=70 bpm, DBQX=048/74 mmhg, SpO2=99.0 %, Resp=14 B/min, Pain=0, Ralph=10, Stevens=2 15:34:12 10 mL 1% XYLOCAINE given by Akil Zarate via Subcutaneous. 15:36:10 HR=64 bpm, CPSO=024/77 mmhg, SpO2=95.0 %, Resp=10 B/min, Pain=0, Ralph=10, Stevens=2 A SHEATH, FR6 RADIAL PRELUDE EASE 11CM FR 6 was advanced into the Radial (right) using the Paula fied Seldinger 15:36:19 technique. A JR 5.0 INFINITI CATHETER FR 5 was advanced over a wire. OMNIPAQUE, 350 MG, 150ML 150ML was us ed for 15:36:42 injections. Recorded Pressure: LV, Ao, HR=67, Condition=Condition 1 15:37:13 (Left Ventricle) LV 116/7/16, (Aorta) Ao 112/55/83 Recorded Pressure: Ao, HR=66, Condition=Condition 1 15:38:11 (Aorta) Ao 114/57/82 15:38:37 200mcg IA R Radial 15:38:55 3000 units HEPARIN given by Tom Victoria RN via Peripheral IV. 15:39:05 The RCA was injected and visualized at various angles. OMNIPAQUE, 350 MG, 150ML 150ML used . 15:39:06 HR=74 bpm, AFJK=079/74 mmhg, SpO2=92.0 %, Resp=9 B/min, Pain=0, Ralph=10, Stevens=2 15:39:49 Catheter was removed A JL 3.5 INFINITI CATHETER FR 5 was advanced over a wire. OMNIPAQUE, 350 MG, 150ML 150ML was u sed for 15:39:52 injections. 15:40:54 The LCA was injected and visualized at various angles. OMNIPAQUE, 350 MG, 150ML 150ML use d. 15:42:04 HR=68 bpm, IEBQ=133/63 mmhg, SpO2=94.0 %, Resp=10 B/min, Pain=0, Ralph=10, Stevens=2 15:43:13 Catheter was removed 15:44:15 Case End (Physician broke scrub) Assessment: Final Case, HR=75 BPM, Rhythm=NSR, SEOV=574/63 mmhg, Chest Pain=0, Edema=None, Col or=Normal, Skin = Warm, Dry Right Pulses: Vaibhav Ped=1, Post Tib=1, Femoral=2 Left Pulses: Vaibhav Ped=1, Post Tib=1, Femoral=2 15:44:20 Lower Right Extremities: Color=Normal Lower Left Extremities: Color=Normal Neurological: State=Alert, Ox3, CARDOSO Respiration: Resp=14 B/min, SpO2=97 % 15:45:45 HR=68 bpm, WOPU=888/65 mmhg, SpO2=97.0 %, Resp=14 B/min, Pain=0, Ralph=10, Stevens=2 Radial Compression Device Used. 10 mLs of air placed in BAND, RADIAL COMPRESSION TR SHORT 24 2 4CM. Affected 15:46:42 hand 97 % O2 saturation. 15:48:08 HR=66 bpm, LVPR=891/68 mmhg, SpO2=96.0 %, Resp=16 B/min, Pain=0, Ralph=10, Stevens=2 15:48:28 No case complications noted. 15:48:29 Cine recording checked. 15:48:37 CIC called. Spoke to US Izzy 15:48:51 Bedside Report will be given. 15:48:56 Verbal Stimulation=2 Physical Stimulation=2 Airway=2 Respiration=2 TOTAL=8. (0=absent, 1=l imited, 2=present) 15:51:52 HR=60 bpm, HGSB=179/67 mmhg, SpO2=98.0 %, Resp=8 B/min, Pain=0, Ralph=10, Stevens=2 15:54:07 HR=65 bpm, HTLR=443/71 mmhg, SpO2=98 %, Resp=12 B/min 15:54:20 Vitals capture stopped. End Study - Contrast Media Used In Study Contrast Total Opened (mL) Total Used (mL) Total Wasted (mL) Omnipaque 150 30 120 End Study - Maximum Contrast Load Max Contrast Load (mL) 484.1 End Study - Radiation Exposure Fluoro Time (minutes) 1.4 End Study - Patient Disposition Complications Transferred To Interventional Outcome No Telemetry Bed successful
--- NOTE | 2018-06-25 16:01 | P.PN ---
Subjective Interval history: Follow up for NSTEMI. Patient is currently doing well. No CP, SOB, fever, chills. Waiting for Cath today. Physical Exam Vital signs: Vital Signs 06/24/18 17:30 06/24/18 17:42 06/24/18 19:00 Temperature 98.3 F 98.3 F 97.7 F Pulse Rate 67 67 59 L Respiratory Rate 16 16 16 Blood Pressure 127/72 127/72 112/63 Pulse Oximetry 99 99 100 06/24/18 20:00 06/24/18 20:27 06/24/18 21:00 Temperature Pulse Rate 58 L 66 64 Respiratory Rate Blood Pressure Pulse Oximetry 06/24/18 22:00 06/24/18 23:00 06/25/18 00:00 Temperature 98.2 F Pulse Rate 56 L 60 54 L Respiratory Rate 16 Blood Pressure 107/54 L Pulse Oximetry 100 06/25/18 01:00 06/25/18 02:00 06/25/18 03:00 Temperature 97.0 F L Pulse Rate 59 L 58 L 54 L Respiratory Rate 16 Blood Pressure 107/58 L Pulse Oximetry 99 06/25/18 04:00 06/25/18 05:00 06/25/18 06:00 Temperature Pulse Rate 61 59 L 71 Respiratory Rate Blood Pressure Pulse Oximetry 06/25/18 07:00 06/25/18 08:00 06/25/18 09:00 Temperature 98 F Pulse Rate 60 64 70 Respiratory Rate 17 Blood Pressure 134/72 Pulse Oximetry 100 06/25/18 10:00 06/25/18 10:35 06/25/18 11:00 Temperature 98.1 F Pulse Rate 66 54 L Respiratory Rate 17 17 Blood Pressure 105/65 Pulse Oximetry 99 06/25/18 12:00 06/25/18 13:00 Temperature Pulse Rate 57 L 79 Respiratory Rate Blood Pressure Pulse Oximetry Intake & Output 06/24/18 06/25/18 06/25/18 18:59 06:59 18:59 Intake Total 1730 / 1730 2480 / 2480 Output Total 1150 / 1150 Balance 1730 / 1730 1330 / 1330 Weight 56.5 kg 58.1 kg Intake: IV 1000 / 1000 1999 NS Inj 1,000 ML @ 100 mls/hr IV 1999 .CONT .Q10H COUNTS INCLUDE 234 BEDS AT [facility] Rx#:[id number] NS Inj 1,000 ML @ Wide Open IV. 1000 / 1000 SIG BOLUS ONE Rx#:[id number] Oral 480 / 480 480 / 480 Oral Supplement 250 / 250 Output: Urine 1150 / 1150 Other: Date of Last Bowel Movement 06/24/18 06/24/18 06/24/18 Narrative: GENERAL: AOX3, NAD. SKIN: Warm and dry. HEAD: Normocephalic. EYES: No scleral icterus. No injection or drainage. NECK: Supple, trachea midline. No JVD or lymphadenopathy. CARDIOVASCULAR: Regular rate and rhythm without murmurs, gallops, or rubs. RESPIRATORY: Breath sounds equal bilaterally. No accessory muscle use. GASTROINTESTINAL: Abdomen soft, non-tender, nondistended. MUSCULOSKELETAL: No cyanosis, or edema. BACK: Nontender without obvious deformity. No CVA tenderness. Results - Labs CBC & Chem 7: 06/25/18 04:30 06/25/18 04:30 Laboratory Results - last 24 hr 06/24/18 06/24/18 06/24/18 08:40 15:16 18:42 WBC RBC Hgb Hct MCV MCH MCHC RDW Plt Count MPV Neut % (Auto) Lymph % (Auto) [place] % (Auto) Eos % (Auto) Baso % (Auto) Neut # (Auto) Lymph # (Auto) [place] # (Auto) Eos # (Auto) Baso # (Auto) WBC Differential Differential Comment PT 10.6 INR 1.0 APTT 27.4 Sodium Potassium Chloride Carbon Dioxide Anion Gap BUN Creatinine Estimated GFR Random Glucose Calcium Total Bilirubin AST ALT Alkaline Phosphatase Troponin I 3.00 H* D Total Protein Albumin Triglycerides 60 Cholesterol 182 LDL Cholesterol, Calc 113 H HDL Cholesterol 56.9 Cholesterol/HDL Ratio 3.19 06/24/18 06/25/18 06/25/18 23:09 04:30 04:30 WBC 3.6 L D RBC 4.40 Hgb 12.0 Hct 36.9 MCV 84.0 MCH 27.2 MCHC 32.4 RDW 14.8 Plt Count 175 MPV 7.7 Neut % (Auto) 54.0 Lymph % (Auto) 34.3 [place] % (Auto) 10.5 H Eos % (Auto) 0.8 Baso % (Auto) 0.4 Neut # (Auto) 1.9 Lymph # (Auto) 1.2 [place] # (Auto) 0.4 Eos # (Auto) 0.0 Baso # (Auto) 0.0 WBC Differential . Differential Comment Auto diff final PT INR APTT 42.5 H D Sodium 147 H Potassium 3.7 Chloride 111 H Carbon Dioxide 28.0 Anion Gap 8 BUN 16 Creatinine 0.60 Estimated GFR Greater than 89 Random Glucose 93 Calcium 8.4 L Total Bilirubin 0.4 AST 26 ALT 27 Alkaline Phosphatase 55 Troponin I Total Protein 5.9 L D Albumin 3.2 L Triglycerides Cholesterol LDL Cholesterol, Calc HDL Cholesterol Cholesterol/HDL Ratio 06/25/18 04:30 WBC RBC Hgb Hct MCV MCH MCHC RDW Plt Count MPV Neut % (Auto) Lymph % (Auto) [place] % (Auto) Eos % (Auto) Baso % (Auto) Neut # (Auto) Lymph # (Auto) [place] # (Auto) Eos # (Auto) Baso # (Auto) WBC Differential Differential Comment PT INR APTT 48.4 H Sodium Potassium Chloride Carbon Dioxide Anion Gap BUN Creatinine Estimated GFR Random Glucose Calcium Total Bilirubin AST ALT Alkaline Phosphatase Troponin I Total Protein Albumin Triglycerides Cholesterol LDL Cholesterol, Calc HDL Cholesterol Cholesterol/HDL Ratio - Imaging Head CT 06/24/18 09:39 CONCLUSION: 1. Negative for acute process . Assessment and Plan - Plan Ms. Barfield is a pleasant 63-year-old female with a history of vertigo who was admitted to the hospital due to weakness, vertigo-like symptoms as well as chest pounding. She did not have any chest pain, diaphoresis. She did have nausea. After admission however workup indicated in STEMI. Her initial troponin was 0.10. However subsequent troponins were elevated to 2.64 and 3.0. Patient was evaluated by cardiology who recommended cardiac catheterization. Non-STEMI -Cardiology is following. Cardiac catheterization later this afternoon. -Continue aspirin 81 mg daily, atorvastatin 40 mg daily. Continue lisinopril 10 mg daily. -Nitroglycerin as needed. Chronic vertigo -Due to acute worsening, MRI brain was considered. However due to non-STEMI , MRI brain is not done. -Patient is currently asymptomatic. -If Cardiac cath is unremarkable, we may consider MRI brain. Full code. Heparin drip.
--- NOTE | 2018-06-25 16:44 | MA ---
cc: Akil Zarate MD DATE: 06/25/2018 INDICATIONS: Non-ST elevation myocardial infarction. REGENERATOR OPERATOR: Akil Zarate MD, [facility] PROCEDURE: Right wrist was prepped and draped in sterile fashion. The right wrist was anesthetized with 2% lidocaine. The right radial artery was cannulated. A 6-Icelandic 11 cm sheath was placed without difficulty. 200 mcg intra-arterial nitroglycerin and 2000 units of intravenous heparin was administered. LEFT HEART CATHETERIZATION: A 5-Icelandic JR5 catheter was advanced across the aortic valve without difficulty. Intraventricular hemodynamics is 116/7 mmHg. No significant aortic stenosis by transaortic valvular pullback gradient. CORONARY ANGIOGRAPHY: Left coronary circulation selectively engage 6-Icelandic JL3.5 catheter. Right coronary circulations engaged 6-Icelandic JR5 catheter. Angiography findings are as follows: 1. Left main coronary artery is angiographically normal. 2. Left anterior descending coronary artery is tortuous, has a diagonal branch, but all of which is angiographically normal. 3. Left circumflex gives rise to first obtuse marginal branch, which is a small to moderate sized caliber vessel that is angiographically normal. 4. Right coronary small dominant vessel, gives rise to a posterior descending branch. Angiographically normal. CONCLUSIONS: 1. Angiographically normal coronary arteries. 2. Normal left-sided filling pressure. PLAN: The patient will be monitored closely for any postprocedural complications. Right sheath will be removed, HemoBand applied. We will continue with guideline directed medical therapy. Her troponin elevation is obviously not thrombotic mediated. No significant plaque burden. We will defer further management decisions to the primary service and drum reel cutter. Akil Zarate MD BECCA/ct , 03:54 PM , 04:01 PM
[2018-06-26] MEDS: Sod Chloride 0.9% Inj 1,000 ML IV.CONT SCH ×2 (03:48→12:42)
[2018-06-26 07:09] LABS: Hematocrit 36.2 % (35.0-46.0); Hemoglobin 11.6 gm/dL (11.6-15.3); Mean Corpuscular HGB Conc 32.2 % (32.0-36.0); Mean Corpuscular Hemoglobin 26.7 pg (27.0-34.0); Mean Corpuscular Volume 83.1 fL (80.0-100.0); Mean Platelet Volume 7.9 fL (7.0-11.0); Platelet Count 181 th/mm3 (150-450); Red Blood Count 4.36 mil/mm3 (4.00-5.30); Red Cell Distribution Width 14.8 % (11.6-17.2); White Blood Count 3.3 th/mm3 (4.0-11.0)
--- NOTE | 2018-06-26 07:42 | P.PNCA ---
Subjective Interval history: Doing well today. No further chest discomfort, palpitations, nausea, dizziness. No issues with right wrist access site. Telemetry with sinus bradycardia rate 49 while sleeping, otherwise unremarkable. Physical Exam Vital signs: Vital Signs 06/25/18 08:00 06/25/18 09:00 06/25/18 10:00 Temperature Pulse Rate 64 70 66 Respiratory Rate Blood Pressure Pulse Oximetry 06/25/18 10:35 06/25/18 11:00 06/25/18 12:00 Temperature 98.1 F Pulse Rate 54 L 57 L Respiratory Rate 17 17 Blood Pressure 105/65 Pulse Oximetry 99 06/25/18 13:00 06/25/18 15:00 06/25/18 16:00 Temperature 98.0 F Pulse Rate 79 71 76 Respiratory Rate 18 Blood Pressure 141/75 H Pulse Oximetry 100 06/25/18 17:00 06/25/18 18:00 06/25/18 19:00 Temperature 98.1 F Pulse Rate 75 70 66 Respiratory Rate 16 Blood Pressure 112/64 Pulse Oximetry 99 06/25/18 20:00 06/25/18 21:00 06/25/18 22:00 Temperature Pulse Rate 63 58 L 60 Respiratory Rate Blood Pressure Pulse Oximetry 06/25/18 23:00 06/26/18 00:00 06/26/18 01:00 Temperature 98.6 F Pulse Rate 63 61 63 Respiratory Rate 16 Blood Pressure 109/55 L Pulse Oximetry 97 06/26/18 02:00 06/26/18 03:00 06/26/18 04:00 Temperature 97.7 F Pulse Rate 66 59 L 61 Respiratory Rate 16 Blood Pressure 117/66 Pulse Oximetry 98 06/26/18 05:00 06/26/18 06:00 06/26/18 07:00 Temperature Pulse Rate 83 74 72 Respiratory Rate Blood Pressure Pulse Oximetry Intake & Output 06/25/18 06/26/18 06/26/18 18:59 06:59 18:59 Intake Total 957 / 957 530 / 530 Balance 957 / 957 530 / 530 Weight 132 lb 0.91 oz Intake: IV 255 / 255 50 / 50 Heparin/NS PF Inj 1,500 ML @ 0 5 / 5 mls/hr .ROUTE .[facility] Rx#: [id number] Heparin/D5W 25,000 U/250 mL 25, 50 / 50 000 unit In 250 ml @ Per Protocol IV.CONT TITRATE PRN Rx #:[id number] NS Inj 1,000 ML @ 100 mls/hr IV 250 / 250 .CONT .Q10H KARY Rx#:[id number] Oral 702 / 702 480 / 480 Other: # Voids 4 3 Date of Last Bowel Movement 06/24/18 06/24/18 06/24/18 Narrative: GENERAL: Well-developed well-nourished. In no acute distress. NECK: No carotid bruits. No JVD. CARDIOVASCULAR: Regular rate and rhythm. No murmur appreciated. RESPIRATORY: No accessory muscle use. Clear to auscultation. Breath sounds equal bilaterally. MUSCULOSKELETAL: No clubbing or cyanosis. No edema. Right radial and ulnar pulses intact. Access site with no swelling, tenderness, ecchymosis. NEUROLOGICAL: Awake and alert. Normal speech. Assessment and Plan - Plan 63-year-old female with past medical history of vertigo who presented for weakness, chest pounding, nausea Assessment: Troponin elevation with angiographically normal coronary arteries on [facility] 06/26 Palpitations hx of vertigo tele reviewed with SB, no events Plan: Amlodipine 2.5 mg for BP control and potential prevention of vasospasm would discontinue lisinopril to avoid hypotension, as she has no history of HTN prior to admission Discharge planning Patient seen and examined. Agree with above. Discussed Condition With: Patient, Dr. Workman
[2018-06-26] MEDS: Timolol 0.25% Drops 5 ML Bottle EACH EYE SCH (08:55)
[2018-06-26] MEDS ORDERED: amLODIPine 5 MG Tablet PO SCH (09:00)
--- NOTE | 2018-06-26 10:57 | P.PN ---
Subjective Interval history: Follow-up for elevated troponins, dizziness and lightheadedness in a patient with a history of vertigo. Patient is currently doing well. No chest pain shortness of breath, fever or chills. She continues to have some dizziness which is not typical of her vertigo symptoms. Physical Exam Vital signs: Vital Signs 06/25/18 11:00 06/25/18 12:00 06/25/18 13:00 Temperature 98.1 F Pulse Rate 54 L 57 L 79 Respiratory Rate 17 Blood Pressure 105/65 Pulse Oximetry 99 06/25/18 15:00 06/25/18 16:00 06/25/18 17:00 Temperature 98.0 F Pulse Rate 71 76 75 Respiratory Rate 18 Blood Pressure 141/75 H Pulse Oximetry 100 06/25/18 18:00 06/25/18 19:00 06/25/18 20:00 Temperature 98.1 F Pulse Rate 70 66 63 Respiratory Rate 16 Blood Pressure 112/64 Pulse Oximetry 99 06/25/18 21:00 06/25/18 22:00 06/25/18 23:00 Temperature 98.6 F Pulse Rate 58 L 60 63 Respiratory Rate 16 Blood Pressure 109/55 L Pulse Oximetry 97 06/26/18 00:00 06/26/18 01:00 06/26/18 02:00 Temperature Pulse Rate 61 63 66 Respiratory Rate Blood Pressure Pulse Oximetry 06/26/18 03:00 06/26/18 04:00 06/26/18 05:00 Temperature 97.7 F Pulse Rate 59 L 61 83 Respiratory Rate 16 Blood Pressure 117/66 Pulse Oximetry 98 06/26/18 06:00 06/26/18 07:00 06/26/18 08:00 Temperature 98.6 F Pulse Rate 74 70 70 Respiratory Rate 18 Blood Pressure 130/71 Pulse Oximetry 99 06/26/18 09:00 06/26/18 10:00 Temperature Pulse Rate 70 70 Respiratory Rate Blood Pressure Pulse Oximetry Intake & Output 06/25/18 06/26/18 06/26/18 18:59 06:59 18:59 Intake Total 957 / 957 530 / 530 Balance 957 / 957 530 / 530 Weight 59.9 kg Intake: IV 255 / 255 50 / 50 Heparin/NS PF Inj 1,500 ML @ 0 5 / 5 mls/hr .ROUTE .[facility] Rx#: [id number] Heparin/D5W 25,000 U/250 mL 25, 50 / 50 000 unit In 250 ml @ Per Protocol IV.CONT TITRATE PRN Rx #:[id number] NS Inj 1,000 ML @ 100 mls/hr IV 250 / 250 .CONT .Q10H KARY Rx#:[id number] Oral 702 / 702 480 / 480 Other: # Voids 4 3 Date of Last Bowel Movement 06/24/18 06/24/18 06/24/18 Narrative: GENERAL: Alert, oriented 3, NAD. SKIN: Warm and dry. HEAD: Normocephalic. EYES: No scleral icterus. No injection or drainage. NECK: Supple, trachea midline. No JVD or lymphadenopathy. CARDIOVASCULAR: Regular rate and rhythm without murmurs, gallops, or rubs. RESPIRATORY: Breath sounds equal bilaterally. No accessory muscle use. GASTROINTESTINAL: Abdomen soft, non-tender, nondistended. MUSCULOSKELETAL: No cyanosis, or edema. BACK: Nontender without obvious deformity. No CVA tenderness. Results - Labs CBC & Chem 7: 06/26/18 05:33 06/25/18 04:30 Laboratory Results - last 24 hr 06/26/18 06/26/18 05:33 05:33 WBC 3.3 L RBC 4.36 Hgb 11.6 Hct 36.2 MCV 83.1 MCH 26.7 L MCHC 32.2 RDW 14.8 Plt Count 181 MPV 7.9 APTT 21.4 L D - Imaging Head CT 06/24/18 09:39 CONCLUSION: 1. Negative for acute process . Assessment and Plan - Plan Ms. Barfield is a pleasant 63-year-old female with a history of vertigo who was admitted to the hospital due to weakness, vertigo-like symptoms as well as chest pounding. She did not have any chest pain, diaphoresis. She did have nausea. After admission however workup indicated in STEMI. Her initial troponin was 0.10. However subsequent troponins were elevated to 2.64 and 3.0. Patient was evaluated by cardiology who recommended cardiac catheterization. Elevated troponins Probable coronary artery vasospasm -Cardiology is following. Cardiac catheterization shows no acute coronary artery occlusion. -Continue aspirin 81 mg daily, atorvastatin 40 mg daily. -Amlodipine 2.5 mg daily for vasospasm Chronic vertigo Dizziness, lightheadedness -Patient reports acute worsening. Patient's symptoms are different from her chronic vertigo. -We will obtain MRI head as well as MRA. If unremarkable, will discharge patient with outpatient neurology follow-up. Full code. D/C Heparin drip. Ambulation for DVT prophylaxis.
[2018-06-26] MEDS ORDERED: Gadobutrol PF 2 MMOL/2 ML Vial (for RAD) IV.SIG ONE (15:04)
--- NOTE | 2018-06-26 15:17 | MR ---
EXAM DATE: 06/26/2018 3:02 PM EDT AGE/SEX: 63 years / Female INDICATIONS: Cephalgia. CLINICAL DATA: This is the patient's initial encounter. Patient reports that signs and symptoms have been present for 1 day and indicates a pain score of 0/10. MEDICAL/SURGICAL HISTORY: . Mitral valve prolapse, glaucoma and skin cancer. Tonsillectomy. Br east implants and basal cell excision. COMPARISON: [facility], CT HEAD W/O CONTRAST, 06/24/2018. . TECHNIQUE: 3D [id number] MRA was performed. Source images, multiplanar STS MIP, and 3D volum e MIP reconstructions were reviewed. FINDINGS: There is excellent visualization of the major intracranial arteries out to the second-order branch ve ssels. There is no evidence for aneurysm, vessel truncation or stenosis, and no evidence for vascula r malformation. CONCLUSION: 1. Negative MRA Cow ([place]) non contrast. Electronically signed by: Parekr Grewal MD 06/26/2018 3:15 PM EDT
--- NOTE | 2018-06-26 15:18 | MR ---
EXAM DATE: 06/26/2018 3:06 PM EDT AGE/SEX: 63 years / Female INDICATIONS: Cephalgia. CLINICAL DATA: This is the patient's initial encounter. Patient reports that signs and symptoms have been present for 1 day and indicates a pain score of 6/10. MEDICAL/SURGICAL HISTORY: . Mitral valve prolapse, glaucoma and skin cancer. Tonsillectomy. Br east implants and basal cell excision. COMPARISON: C, MRA HEAD W/O CONTRAST, 06/26/2018. . TECHNIQUE: Multiplanar, multisequence examination of the brain was performed without and with 5.9 ml Gadavist (gadobutrol) contrast as a single exam dose. FINDINGS: Diffusion weighted images demonstrate no evidence for acute infarction. Scattered foci of increased F LAIR signal are noted in the bilateral centrum semiovale, subcortical white matter and periventricula r white matter, nonspecific in appearance. No hemorrhage, infarct, or mass. No abnormal areas of enha ncement are identified following contrast administration. 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 CONCLUSION: 1. Nonspecific white matter disease without mass or infarct. Electronically signed by: Arden Neely MD 06/26/2018 3:16 PM EDT
== END 2018-06-26 19:24 | disposition home or self-care (01) ==
LOC: PHEDA 08:02 → PHED 08:02 → PH3 12:33 → HCIS 17:21
PROVIDERS: ADMIT Hospitalist; ATTEND Hospitalist